=== PATIENT | female | born 1975 | race Caucasian/White ===

== ENCOUNTER 2017-08-05 18:34 | Emergency (ER) | payer MEDICAID ==
[~2017-08-05] VITALS: Ht 152.4 cm; Wt 67.1 kg
[2017-08-05 19:15] VITALS: BP 128/82
--- NOTE | 2017-08-05 19:15 | Urgent Treatment Center Report ---
History of Present Issue Date/Time Seen by Provider 08/05/17 1904 Visit Reason Pt arrived:Walked Presenting Problem:State she was kicked inthe right upper thigh on Monday. States she now has a knot on the back of her right calf. Has concerns for blood clot Location if Accident:Work Onset of symptoms date/time:08/02/17/ or onset unknown for:MEDICAL HX UNKNOWN Have you (or family members/close friends) recently traveled outside the [place]? N If Yes, where/when: Have you had exposure to infectious disease within the past month? TB? Other? Specify: Source patient Exam Limitations no limitations Comment 41-year-old female presents for pain in the RIGHT calf. Patient was kicked by a horse in the RIGHT upper off on Monday and today noticed a knot and warmth to the RIGHT upper calf. Previously he had had her adenoids removed less than a month ago. ALLERGIES Coded Allergies: ceftriaxone (From ROCEPHIN) (IV FORM ONLY 08/05/17) erythromycin base (08/05/17) Home Medications Active Scripts Prednisone (Prednisone 20MG) 20 MG PO BID #10 TAB Prov: 06/03/16 Reported Medications Montelukast Sodium 10 MG PO DAILY #30 LEVONORGESTREL-ETHIN ESTRADIOL (Jolessa 0.15 MG-0.03 MG Tablet) 1 TAB PO DAILY #91 History Medical History General CAD? No Angina: No [place]: No Hypertension? No Hyperlipidemia? No CHF? No DVT? No PE? No COPD? No Asthma? No Anemia? No GERD? No Gastric ulcers? No GI Bleed? No Hernia? No Thyroid Problems? Yes Hypothyroidism? No CVA? No Seizures? No Diabetes? No Insulin Dependent: No Insulin Pump: No Home FSBS? No Renal Insuffiency? No UTI? Yes Stones? Yes BPH? No GB Disease: No Nephritic Syndrome? No Asplenia? No Hepatitis? No Sickle Cell Disease? No Arthritis? No Migraines? No Cataracts? No Glaucoma? No MRSA? Yes HIV? No TB? No Anxiety? No Depression? No Cancer? No More? No Immunization HX DT/Tetanus < 1 Year Ago Surgical Hx Previous Surgery?Y TONSILLECTOMY KIDNEY STONES [employer] [employer] Hx LMP 1 Week Ago Social History Smoking Hx Smoker: Current Every Day Smoker Tobacco: Yes Type Cigarettes Packs/day < 1 Pack Alcohol Alcohol: No Review of Systems All Other Systems Reviewed and Negative Musculoskeletal see HPI Physical Exam Vital Signs Vital Signs Date Time Temp Pulse Resp B/P Pulse O2 O2 Flow FiO2 Ox Delivery Rate 08/05 1845 97.9 78 18 128/82 100 General Appearance normal appearance, no apparent distress Respiratory Status Yes: trachea midline, chest symmetrical, non tender chest. No: respiratory distress. Lung Sounds bilateral: normal breath sounds, lungs clear. Cardiovascular normal exam, regular rate/rhythm, no peripheral edema Peripheral Pulses Pulses normal Yes Extremities pedal edema, swelling, large bruise noted to the RIGHT upper thigh. Golf ball sized hematoma palpated in the RIGHT calf, warm to touch, Neurologic alert, normal exam, oriented x 3 Medical Decision Making LABS/Meds/Orders Pt receiving controlled substance in ED? No Results/Orders Orders Procedure Date/time Status FEMUR-RT-2 VIEWS 08/05 1902 Active Departure Departure Time of Disposition 1911 Disposition DC Home or Self Care(routine) Clinical Impression Primary Impression: Hematoma Condition STABLE Patient Instructions DI for Hematoma (Bruise) Additional Instructions Explained to patient about having a Lovenox injection tonight and following up in the a.m. for a venous Doppler to rule out DVT. Patient refused to have an injection without She has a blood clot. Patient wants to [facility] to be evaluated tonight Discharge Counseling Counseled pt/family regarding diagnosis, home care, follow up needs at 1915
== END 2017-08-05 19:18 | disposition home or self-care (01) ==
LOC: ER 18:34 → UTC 18:40 → ER 18:40 → UTC 19:18
DX: S80.11XA Contusion of right lower leg, initial encounter (principal); W55.12XA Struck by horse, initial encounter; Y92.79 Other farm location as the place of occurrence of the external cause; Y99.0 Civilian activity done for income or pay; Z88.1 Allergy status to other antibiotic agents; F17.210 Nicotine dependence, cigarettes, uncomplicated

== ENCOUNTER 2017-10-01 13:30 | Emergency (ER) | payer MEDICAID ==
[~2017-10-01] VITALS: Ht 152.4 cm; Wt 70.8 kg
[~2017-10-01 13:30] MED LIST: CEFDINIR300 M1 PO; CLARITIN 10MG T10 MG PO; ERRIN0.35 MG PO; FLONASE 50 MCG16 GM; HYDROXYZINE PAM25 MG PO; IBUPROFEN800 MG PO; JOLESSA 30 MCG-1 TAB PO; LEVOFLOXACIN 5500 M1 PO; MEDROL 4MG. DOSE4 MG PO; METFORMIN500 MG PO; MONTELUKAST SOD10 MG PO; NAPROXEN D/R500 MG PO; PREDNISONE 20MG20 MG PO; PRILOSEC40 MG PO; SUDAFED 12 HOU120 MG PO; TORADOL10 M1 PO; VENLAFAXINE H37.5 M2 PO; VITAMIN B125000 MCG SL
[2017-10-01 13:51] LABS: URINE BILIRUBIN - DIPSTICK NEGATIVE (NEG); URINE BLOOD NEGATIVE (NEG)
--- NOTE | 2017-10-01 13:51 | Urgent Treatment Center Report ---
See Addendum History of Present Issue Date/Time Seen by Provider 10/01/17 1340 Visit Reason Pt arrived:Walked Presenting Problem:PT ADVISES SHE WAS HAVING INTERCOURSE LAST NIGHT AND STARTED HAVING PAIN AND IS NOW HAVING PAIN WITH URINATION Location if Accident: Onset of symptoms date/time:/ or onset unknown for:MEDICAL HX UNKNOWN Have you (or family members/close friends) recently traveled outside the [place]? N If Yes, where/when: Have you had exposure to infectious disease within the past month? TB? Other? Specify: c/o dysuria. Reports she was having intercourse last night w/ her spouse, but that they also use "typical sex toys", when she started to experience a sharp pain in right suprapubic area. Tried to continue with intercourse but had to stop because pain too intense. Pain improved but didn't resolve. Woke up this morning still w/ mild pain most noticed with "certain movement" but sharp pain while urinating. No bleeding or discharge. LMP 09/20. Last pap 1-2 months ago. Normal. Denies hx of STI. One partner. No treatment prior to arrival. Source patient Exam Limitations no limitations ALLERGIES Coded Allergies: ceftriaxone (From ROCEPHIN) (IV FORM ONLY 08/05/17) erythromycin base (08/05/17) Home Medications Reported Medications Montelukast Sodium 10 MG PO DAILY #30 LEVONORGESTREL-ETHIN ESTRADIOL (Jolessa 0.15 MG-0.03 MG Tablet) 1 TAB PO DAILY #91 History Medical History General CAD? No Angina: No [place]: No Hypertension? No Hyperlipidemia? No CHF? No DVT? No PE? No COPD? No Asthma? No Anemia? No GERD? No Gastric ulcers? No GI Bleed? No Hernia? No Thyroid Problems? Yes Hypothyroidism? No CVA? No Seizures? No Diabetes? No Insulin Dependent: No Insulin Pump: No Home FSBS? No Renal Insuffiency? No UTI? Yes Stones? Yes BPH? No GB Disease: No Nephritic Syndrome? No Asplenia? No Hepatitis? No Sickle Cell Disease? No Arthritis? No Migraines? No Cataracts? No Glaucoma? No MRSA? Yes HIV? No TB? No Anxiety? No Depression? No Cancer? No More? No Immunization HX DT/Tetanus < 1 Year Ago Surgical Hx Previous Surgery?Y TONSILLECTOMY KIDNEY STONES CRYO-CERVIX Social History Smoking Hx Smoker: Current Every Day Smoker Tobacco: Yes Type Cigarettes Packs/day < 1 Pack Alcohol Alcohol: No Review of Systems All Other Systems Reviewed and Negative (as appropriate for CC) Constitutional see HPI, denies chills, denies fever Gastrointestinal see HPI, denies constipation, denies diarrhea, denies nausea, denies vomiting Genitourinary see HPI, frequency ("always", unchanged). denies: hesitancy, hematuria, genital lesions, . Musculoskeletal denies back pain, denies joint pain Skin denies lesions, denies lumps, denies rash Psychiatric/Neurological denies weakness, denies other (dizziness) Physical Exam Vital Signs Vital Signs Date Time Temp Pulse Resp B/P Pulse O2 O2 Flow FiO2 Ox Delivery Rate 10/01 1346 98.1 76 16 141/95 98 General Appearance normal appearance, no apparent distress Respiratory Status No: respiratory distress. Lung Sounds anterior: lungs clear. posterior: lungs clear. bilateral: lungs clear. Cardiovascular regular rate/rhythm, no peripheral edema, no murmur Gastrointestinal normal bowel sounds, non tender, soft, no organomegaly, no pulsatile mass, no guarding, no rebound, no suprapubic tenderness, no bladder distention Back no CVA tenderness Pelvic normal external exam, discharge (thin, white, no obvious odor), tender w/ cervical motion, tender adnexa (right), uncomfortable throughout speculum and manual exam; last pelvic 09/06/17 and reports wasn't that uncomfortable Nurse present during exam? Yes (jason) Neurologic alert, oriented x 3 Skin normal color, warm/dry Medical Decision Making LABS/Meds/Orders Pt receiving controlled substance in ED? No Results/Orders Laboratory Tests 10/01/17 1407: C.trachomatis DNA (CHEYANNE) Pending, N.gonorrhoeae RNA Pending 10/01/17 1349: Urine Color YELLOW, Urine Appearance Clear, Urine pH 6.5, Ur Specific [place] 1.015, Urine Protein NEGATIVE, Urine Ketones NEGATIVE, Urine Blood NEGATIVE, Urine Nitrate NEGATIVE, Urine Bilirubin NEGATIVE, Urine Urobilinogen 0.2, Ur Leukocyte Esterase NEGATIVE, Urine Glucose NEGATIVE Orders Procedure Date/time Status WET PREP 10/01 1544 Complete JESICA PREP 10/01 1544 Complete CHLAMYDIA/GC 10/01 1544 Active [facility] URINE DIPSTICK 10/01 1349 Complete Progress [facility] Progress Notes Date 10/01/17 Time 1436 Comment patient's son is with her and being seen as well. She is waiting for his visit to be done so he can leave before she has her exam Departure Departure Time of Disposition 1646 Disposition DC Home or Self Care(routine) Clinical Impression Primary Impression: Bacterial vaginal infection Condition STABLE Referrals Elio HALL,Tyrese Brown Call office tomorrow. Tell them you were in [facility] tonight and dx w/ bacterial vaginal infection and you need follow up appointment Patient Instructions DI for Bacterial Vaginosis Additional Instructions You swab did not show cells that indicate bacterial vaginosis but it is another type of bacterial vaginal infection. Be sure to follow up with Dr. Wood * start antibiotic today. Be sure to complete entire prescription even if feeling better. Discharge Counseling Counseled pt/family regarding diagnosis, test results, medications/RX, home care, follow up needs Prescriptions Current Visit Scripts Metronidazole (Flagyl) 500 MG PO BID #14 TAB at 8558
--- NOTE | 2017-10-01 13:51 | Urgent Treatment Center Report ---
See Addendum History of Present Issue Date/Time Seen by Provider 10/01/17 1340 Visit Reason Pt arrived:Walked Presenting Problem:PT ADVISES SHE WAS HAVING INTERCOURSE LAST NIGHT AND STARTED HAVING PAIN AND IS NOW HAVING PAIN WITH URINATION Location if Accident: Onset of symptoms date/time:/ or onset unknown for:MEDICAL HX UNKNOWN Have you (or family members/close friends) recently traveled outside the [place]? N If Yes, where/when: Have you had exposure to infectious disease within the past month? TB? Other? Specify: c/o dysuria. Reports she was having intercourse last night w/ her spouse, but that they also use "typical sex toys", when she started to experience a sharp pain in right suprapubic area. Tried to continue with intercourse but had to stop because pain too intense. Pain improved but didn't resolve. Woke up this morning still w/ mild pain most noticed with "certain movement" but sharp pain while urinating. No bleeding or discharge. LMP 09/20. Last pap 1-2 months ago. Normal. Denies hx of STI. One partner. No treatment prior to arrival. Source patient Exam Limitations no limitations ALLERGIES Coded Allergies: ceftriaxone (From ROCEPHIN) (IV FORM ONLY 08/05/17) erythromycin base (08/05/17) Home Medications Reported Medications Montelukast Sodium 10 MG PO DAILY #30 LEVONORGESTREL-ETHIN ESTRADIOL (Jolessa 0.15 MG-0.03 MG Tablet) 1 TAB PO DAILY #91 History Medical History General CAD? No Angina: No [place]: No Hypertension? No Hyperlipidemia? No CHF? No DVT? No PE? No COPD? No Asthma? No Anemia? No GERD? No Gastric ulcers? No GI Bleed? No Hernia? No Thyroid Problems? Yes Hypothyroidism? No CVA? No Seizures? No Diabetes? No Insulin Dependent: No Insulin Pump: No Home FSBS? No Renal Insuffiency? No UTI? Yes Stones? Yes BPH? No GB Disease: No Nephritic Syndrome? No Asplenia? No Hepatitis? No Sickle Cell Disease? No Arthritis? No Migraines? No Cataracts? No Glaucoma? No MRSA? Yes HIV? No TB? No Anxiety? No Depression? No Cancer? No More? No Immunization HX DT/Tetanus < 1 Year Ago Surgical Hx Previous Surgery?Y TONSILLECTOMY KIDNEY STONES CRYO-CERVIX Social History Smoking Hx Smoker: Current Every Day Smoker Tobacco: Yes Type Cigarettes Packs/day < 1 Pack Alcohol Alcohol: No Review of Systems All Other Systems Reviewed and Negative (as appropriate for CC) Constitutional see HPI, denies chills, denies fever Gastrointestinal see HPI, denies constipation, denies diarrhea, denies nausea, denies vomiting Genitourinary see HPI, frequency ("always", unchanged). denies: hesitancy, hematuria, genital lesions, . Musculoskeletal denies back pain, denies joint pain Skin denies lesions, denies lumps, denies rash Psychiatric/Neurological denies weakness, denies other (dizziness) Physical Exam Vital Signs Vital Signs Date Time Temp Pulse Resp B/P Pulse O2 O2 Flow FiO2 Ox Delivery Rate 10/01 1346 98.1 76 16 141/95 98 General Appearance normal appearance, no apparent distress Respiratory Status No: respiratory distress. Lung Sounds anterior: lungs clear. posterior: lungs clear. bilateral: lungs clear. Cardiovascular regular rate/rhythm, no peripheral edema, no murmur Gastrointestinal normal bowel sounds, non tender, soft, no organomegaly, no pulsatile mass, no guarding, no rebound, no suprapubic tenderness, no bladder distention Back no CVA tenderness Pelvic normal external exam, discharge (thin, white, no obvious odor), tender w/ cervical motion, tender adnexa (right), uncomfortable throughout speculum and manual exam; last pelvic 09/06/17 and reports wasn't that uncomfortable Nurse present during exam? Yes (jason) Neurologic alert, oriented x 3 Skin normal color, warm/dry Medical Decision Making LABS/Meds/Orders Pt receiving controlled substance in ED? No Results/Orders Laboratory Tests 10/01/17 1407: C.trachomatis DNA (CHEYANNE) Pending, N.gonorrhoeae RNA Pending 10/01/17 1349: Urine Color YELLOW, Urine Appearance Clear, Urine pH 6.5, Ur Specific [place] 1.015, Urine Protein NEGATIVE, Urine Ketones NEGATIVE, Urine Blood NEGATIVE, Urine Nitrate NEGATIVE, Urine Bilirubin NEGATIVE, Urine Urobilinogen 0.2, Ur Leukocyte Esterase NEGATIVE, Urine Glucose NEGATIVE Orders Procedure Date/time Status WET PREP 10/01 1544 Complete JESICA PREP 10/01 1544 Complete CHLAMYDIA/GC 10/01 1544 Active [facility] URINE DIPSTICK 10/01 1349 Complete Progress [facility] Progress Notes Date 10/01/17 Time 1436 Comment patient's son is with her and being seen as well. She is waiting for his visit to be done so he can leave before she has her exam Departure Departure Time of Disposition 1646 Disposition [place] Home or Self Care(routine) Clinical Impression Primary Impression: Bacterial vaginal infection Condition STABLE Referrals Elio HALL,Tyrese Brown Call office tomorrow. Tell them you were in [facility] tonight and dx w/ bacterial vaginal infection and you need follow up appointment Patient Instructions DI for Bacterial Vaginosis Additional Instructions You swab did not show cells that indicate bacterial vaginosis but it is another type of bacterial vaginal infection. Be sure to follow up with Dr. Wood * start antibiotic today. Be sure to complete entire prescription even if feeling better. Discharge Counseling Counseled pt/family regarding diagnosis, test results, medications/RX, home care, follow up needs Prescriptions Current Visit Scripts Metronidazole (Flagyl) 500 MG PO BID #14 TAB at 9546
[2017-10-01] MEDS ORDERED: FLAGYL500 M1 PO (16:48)
[2017-10-01 16:49] VITALS: BP 141/95
[2017-10-03 20:36] LABS: Neisseria gonorrhoeae, NAA Negative (Negative)
== END 2017-10-01 16:50 | disposition home or self-care (01) ==
LOC: UTC 13:30
PROVIDERS: Nurse Practitioner Family
DX: N76.0 Acute vaginitis (principal); Z88.1 Allergy status to other antibiotic agents; F17.210 Nicotine dependence, cigarettes, uncomplicated